=== PATIENT | male | born 1955 | race Caucasian/White ===

== ENCOUNTER 2017-01-18 22:55 | Emergency (ER) | payer SELFPAY ==
--- NOTE | 2017-01-19 00:56 | ED EAR COMPLAINT ---
History of Present Illness General Chief Complaint: Ear Complaints Stated Complaint: PT HAS PAIN IN HIS LEFT EAR FOR 2DYS Vital Signs & Intake/Output Vital Signs & Intake/Output Vital Signs Date Time Temp Pulse Resp B/P B/P Pulse O2 O2 Flow FiO2 Mean Ox Delivery Rate 01/19 0050 98 Room Air 01/18 2258 98.4 73 16 134/81 99 Room Air ED Intake and Output 01/19 0000 01/18 1200 Intake Total Output Total Balance Patient 77.111 kg Weight Weight Reported by Patient Measurement Method Allergies Coded Allergies: NO KNOWN ALLERGIES (08/21/12) Triage Note: LEFT EAR PAIN X3-4 DAYS, STARTED WITH A MUFFLED SOUND. NOW CLEAR, HEARING IS INTACT BUT PAIN WHICH IS CONSTANT. PAIN INTO HEAD, BUT NOT RADIATING ELSEWHERE. AFEBRILE [place] SPEAKING ONLY, WITH SON TO INTERPRET BUT DIFFICULT TO UNDERSTAND DETAILS OR MEDICAL HISTORY. PT NORMALLY GOES TO [facility] PER SON. DOES NOT HAVE A PMD. Past History Travel History Traveled to [place] past 21 day No Medical History Neurological: NONE EENT: NONE Cardiovascular: CARDIAC CATH Respiratory: NONE Gastrointestinal: NONE Hepatic: NONE Renal: NONE Musculoskeletal: NONE Psychiatric: NONE Endocrine: NONE Blood Disorders: NONE Psychosocial History What is your primary language P[place]in[place] Tobacco Use: Never used Departure Departure Condition: Stable Referrals: PATIENT HAS NO PRIMARY CARE DR (PCP/Family) Departure Forms: Customer Survey General Discharge Information
--- NOTE | 2017-01-19 01:26 | ED EAR COMPLAINT ---
History of Present Illness General Chief Complaint: Ear Complaints Stated Complaint: PT HAS PAIN IN HIS LEFT EAR FOR 2DYS Source: family Exam Limitations: no limitations Vital Signs & Intake/Output Vital Signs & Intake/Output Vital Signs Date Time Temp Pulse Resp B/P B/P Pulse O2 O2 Flow FiO2 Mean Ox Delivery Rate 01/19 0153 98.7 88 18 130/81 99 Room Air 01/19 0050 98 Room Air 01/18 2258 98.4 73 16 134/81 99 Room Air ED Intake and Output 01/19 0000 01/18 1200 Intake Total Output Total Balance Patient 170 lb Weight Weight Reported by Patient Measurement Method Allergies Coded Allergies: NO KNOWN ALLERGIES (08/21/12) Reconcile Medications Amoxicillin/Potassium Clav (Augmentin 875-125 Tablet) 875 MG-125 MG TABLET 1 TAB PO BID EAR INFECTION Carbamide Peroxide (Debrox) 6.5 % DROPS 2 GTT TOP TID PRN EAR WAX THREE TIMES A DAY X 5 DAYS Ibuprofen 600 MG TABLET 1 TAB PO TID PRN PAIN with food Triage Note: LEFT EAR PAIN X3-4 DAYS, STARTED WITH A MUFFLED SOUND. NOW CLEAR, HEARING IS INTACT BUT PAIN WHICH IS CONSTANT. PAIN INTO HEAD, BUT NOT RADIATING ELSEWHERE. AFEBRILE [place] SPEAKING ONLY, WITH SON TO INTERPRET BUT DIFFICULT TO UNDERSTAND DETAILS OR MEDICAL HISTORY. PT NORMALLY GOES TO [place] PER SON. DOES NOT HAVE A PMD. Triage Nurses Notes Reviewed? yes HPI: 61 yo M presents to the ED due to complains of left ear pain. His symptoms started 3 days ago and have been constant since then. He mentions the pain has been the same but intermittent in nature with radiation to his left temporal region and 8/10 in severity. Lying on the affected side worsens his pain. He also complains of decreased hearing for the past 3 days along with tinnitus. He denies any feeling of dizziness, vertigo, headaches, nausea/vomitting or any history of trauma. (GRETEL TSAI,RYNE) Past History Travel History Traveled to [place] past 21 day No Medical History Any Pertinent Medical History? see below for history Neurological: NONE EENT: NONE Cardiovascular: CARDIAC CATH Respiratory: NONE Gastrointestinal: NONE Hepatic: NONE Renal: NONE Musculoskeletal: NONE Psychiatric: NONE Endocrine: diabetes, hypercholesterolemia Blood Disorders: NONE Surgical History Surgical History: non-contributory Psychosocial History What is your primary language Setswana Tobacco Use: Never used ETOH Use: denies use Family History Hx Contributory? No (RYNE MAJANO MD) Review of Systems Review of Systems Constitutional: Reports: no symptoms. EENTM: Reports: ear pain, hearing changes. Respiratory: Reports: no symptoms. Cardiovascular: Reports: no symptoms. Musculoskeletal: Reports: no symptoms. (RYNE MAJANO MD) Physical Exam Physical Exam General Appearance: well developed/nourished, no apparent distress Head: atraumatic, normal appearance Eyes: Bilateral: normal appearance. Ears: Left: tenderness. Mouth/Throat: normal mouth inspection Cardiovascular/Respiratory: normal breath sounds (RYNE MAJANO MD) Progress Differential Diagnoses I considered the following diagnoses in my evaluation of the patient: Plan of Care: Current Medications Sig/Daniel Start time Last Medication Dose Stop Time Status Admin Amoxicillin/ 1,000 MG ONCE ONE 01/19 145 AC Clavulanate Potassium 01/19 146 (Augmentin) Initial ED EKG: none (RYNE MAJANO MD) Departure Departure Disposition: HOME OR SELF CARE Condition: Stable Referrals: PATIENT HAS NO PRIMARY CARE DR (PCP/Family) Departure Forms: Customer Survey General Discharge Information Prescriptions: Current Visit Scripts Carbamide Peroxide (Debrox) 2 GTT TOP TID PRN EAR WAX #1 BOT THREE TIMES A DAY X 5 DAYS Amoxicillin/Potassium Clav (Augmentin 875-125 Tablet) 1 TAB PO BID #14 TAB Ibuprofen 1 TAB PO TID PRN PAIN #10 TAB with food (RYNE MAJANO MD) Departure Clinical Impression Primary Impression: Otitis media Qualifiers: Laterality: left Resident Co-Sign Statement Statement: ED Attending supervision documentation- [x] I saw and evaluated the patient. I have also reviewed all the pertinent lab results and diagnostic results. I agree with the findings and the plan of care as documented in the Resident's documentation. pt with cerumen impaction and mild otitis media on left ear. pt safe for discharge with augmentin and debrox. close follow up advised. [] I have reviewed the ED Record and agree with the Resident's documentation. [] Additions or exceptions (if any) to the Resident's note and plan are summarized below: [] (NICOLE TSAI,MORALES Sandoval)
[2017-01-19] MEDS ORDERED: IBUPROFEN600 M1 PO (01:40)
[2017-01-19] MEDS ORDERED: AUGMENTIN 875-1 EACH PO (01:40)
[2017-01-19] MEDS ORDERED: DEBROX15 ML TOP (01:40)
[2017-01-19 01:53] VITALS: BP 130/81
== END 2017-01-19 01:58 ==
LOC: ERH 22:55
DX: H66.92 Otitis media, unspecified, left ear (principal)
CPT/HCPCS: J3490

== ENCOUNTER 2017-10-06 21:36 | Emergency (ER) | payer SELFPAY ==
[~2017-10-06] VITALS: Ht 172.7 cm; Wt 72.6 kg
[~2017-10-06 21:36] MED LIST: AUGMENTIN 875-1 EACH PO; DEBROX15 ML TOP; IBUPROFEN600 M1 PO
[2017-10-06 21:47] VITALS: BP 128/70
--- NOTE | 2017-10-06 21:57 | ED EYE COMPLAINT ---
History of Present Illness General Chief Complaint: Eye Problems Stated Complaint: LEFT EYE PAIN Source: patient Exam Limitations: language barrier, translation via daughter Vital Signs & Intake/Output Vital Signs & Intake/Output Vital Signs Date Time Temp Pulse Resp B/P B/P Pulse O2 O2 Flow FiO2 Mean Ox Delivery Rate 10/06 2147 97.8 76 18 128/70 95 Room Air Allergies Coded Allergies: No Known Allergies (01/23/17) Reconcile Medications Amoxicillin/Potassium Clav (Augmentin 875-125 Tablet) 875 MG-125 MG TABLET 1 TAB PO BID EAR INFECTION Carbamide Peroxide (Debrox) 6.5 % DROPS 2 GTT TOP TID PRN EAR WAX THREE TIMES A DAY X 5 DAYS Ibuprofen 600 MG TABLET 1 TAB PO TID PRN PAIN with food Polytrim (Polytrim Eye Drops) 10,000 UNIT-1 MG/ML DROPS 2 GTT OPH Q6 conjunctivitis/infection x 7 days Triage Note: PT FROM HOME C/O RIGHT EYE PAIN FOR THE PAST 2X DAYS. PTS GRANDDAUGHTER IN TRIAGE FOR TRANSLATION, PT SPEAKS ALBAIAN. PT STATES THAT 3 YEARS AGO HE GOT SOMETHING IN HIS EYE AND THEY WASHED IT OUT, NOW THE SAME FEELING. PT DENIES INJURY OR TRAUMA. PT STATES MINIMAL BLURRY VISION "SOMETHING IS IN MY EYE AND ITS PAINFUL" VSS. PT STATES PAIN IS IN UPPER EYE LID. Triage Nurses Notes Reviewed? yes Onset: Gradual Duration: day(s): Timing: recent history Injury Environment: home Severity: mild Left Eye Associated Symptoms: burning, itching Right Eye Associated Symptoms: normal HPI: 62 yo gentleman in prior good health presents with 2 days of left eye pain and burning. He notes that he was outside working and then felt burning pain and itching w/ increased tearing. Past History Travel History Traveled to [place] past 21 day No Medical History Any Pertinent Medical History? 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 No Review of Systems Review of Systems Constitutional: Reports: no symptoms. Eyes: Reports: no symptoms. Ear: Reports: no symptoms. Nose: Reports: no symptoms. Mouth: Reports: no symptoms. Throat: Reports: no symptoms. Respiratory: Reports: no symptoms. Cardiovascular: Reports: no symptoms. GI: Reports: no symptoms. Genitourinary: Reports: no symptoms. Musculoskeletal: Reports: no symptoms. Skin: Reports: no symptoms. Neurological/Psychological: Reports: no symptoms. Hematologic/Endocrine: Reports: no symptoms. Immunologic/Allergic: Reports: no symptoms. All Other Systems: Reviewed and Negative Physical Exam General Appearance: well developed/nourished, no apparent distress, alert General Inspection: normal inspection Eyelid: normal inspection Conjunctiva/Sclera: mild injection Cornea: examined w/fluorescein, fluorescein dye uptake, no foreign body, there is fluoroscein update in a punctate area at 12 o'clock position on cornea. mild conjunctival injection. EOM: intact Pupil: normal accommodation, normal pupil, PERRL General Inspection: normal inspection Eyelid: normal inspection Conjunctiva/Sclera: normal inspection Cornea: normal inspection EOM: intact Pupil: normal accommodation, normal pupil, PERRL Physical Exam Head: atraumatic Nose: normal inspection Mouth/Throat: normal mouth inspection Neck: normal inspection, supple, full range of motion Cardiovascular/Respiratory: normal breath sounds Neurologic/Psych: no motor/sensory deficits, awake, alert, oriented x 3 Skin: intact, normal color, warm/dry Progress Differential Diagnosis: cornal abrasion vs other. Plan of Care: pt feels better with tetracaine administration to left eye. Departure Departure Disposition: HOME OR SELF CARE Condition: Stable Clinical Impression Primary Impression: Corneal abrasion Referrals: Patient Has No Primary Care Dr (PCP/Family) Departure Forms: Customer Survey General Discharge Information Prescriptions: Current Visit Scripts Polytrim (Polytrim Eye Drops) 2 GTT OPH Q6 #20 ML x 7 days
[2017-10-06] MEDS ORDERED: POLYTRIM EYE DR10 ML OPH (22:12)
== END 2017-10-06 22:24 ==
LOC: ERH 21:36
DX: S05.02XA Injury of conjunctiva and corneal abrasion without foreign body, left eye, initial encounter (principal); X58.XXXA Exposure to other specified factors, initial encounter; Y92.9 Unspecified place or not applicable; Y93.9 Activity, unspecified